=== PATIENT | male | born 2000 | race Caucasian/White ===

== ENCOUNTER 2025-02-05 23:39 | Inpatient (IN) | payer OTHER ==
[~2025-02-05] VITALS: Ht 170.2 cm; Wt 107.5 kg
[2025-02-06] VITALS (16 sets, daily range): BP systolic 134–159; BP diastolic 71–105; PULSE 58–105; RESP 12–28; TEMP 36.9–37.7; O2SAT 93–99
[2025-02-06] MEDS: LEVETIRACETAM 1000MG PREMIX 100 ML IV ONE (00:27)
[2025-02-06] MEDS: SODIUM CHLORIDE 0.9% 1,000 ML IV ONE (00:27)
[2025-02-06 01:07] LABS: DIFFERENTIAL COMMENT 1; HEMATOCRIT. 47.4 % (42.0-52.0); HEMOGLOBIN. 15.5 g/dL (14.0-18.0); MEAN CORPUSCULAR HEMOGLOBIN 27.4 pg (28.0-32.0); MEAN CORPUSCULAR HGB CONC 32.8 g/dL (31.0-37.0); MEAN CORPUSCULAR VOLUME 83.7 fL (80.0-94.0); MEAN PLATELET VOLUME 9.2 fl (7.4-10.4); PLATELET 290 x1000/uL (130-400); RED BLOOD CELL COUNT 5.67 mill/uL (4.7-6.1); RED CELL DISTRIBUTION WIDTH 13.8 % (11.6-14.6); WHITE BLOOD COUNT 33.2 x1000/uL (4.5-11.0)
[2025-02-06 01:12] LABS: CHLORIDE 104 mEq/L (98-107); SODIUM 138 mEq/L (136-145)
[2025-02-06 01:13] LABS: CALCIUM 8.7 mg/dL (8.7-10.4); CARBON DIOXIDE 22 mEq/L (21-32)
[2025-02-06 01:18] LABS: CREATININE 1.4 mg/dL (0.6-1.3); ETHANOL BLOOD < 10 mg/dL (<10); GLUCOSE 280 mg/dL (70-105); UREA NITROGEN BLOOD 10 mg/dL (9-23)
[2025-02-06] MEDS: SODIUM CHLORIDE 0.9% (SEPSIS BOLUS) IV ONE (01:38)
[2025-02-06] MEDS: PIPERACILLIN/TAZO 3.375G/50ML 50 ML IV ONE (01:42)
[2025-02-06 01:49] LABS: ALANINE AMINOTRANSFERASE 94 IU/L (10-49); ALBUMIN 4.5 g/dL (3.2-4.8); ASPARTATE AMINOTRANSFERASE 50 IU/L (<34); BILIRUBIN DIRECT < 0.1 mg/dL (<=3.0); BILIRUBIN TOTAL 0.2 mg/dL (0.1-1.0); PROTEIN TOTAL 7.2 g/dL (6.0-8.3)
[2025-02-06 01:53] LABS: LACTIC ACID 5.9 mmol/L (0.4-2.0)
[2025-02-06] MEDS: VANCOMYCIN 1G PREMIX 200 ML IV ONE (02:12)
[2025-02-06 02:37] LABS: CLARITY URINE CLEAR (CLEAR); COLOR URINE YELLOW (YELLOW); GLUCOSE URINE TRACE (NEGATIVE); KETONES URINE NEGATIVE (NEGATIVE); LEUKOCYTE ESTERASE URINE NEGATIVE (NEGATIVE); NITRITE URINE NEGATIVE (NEGATIVE); OCCULT BLOOD URINE 2+ (NEGATIVE); PROTEIN URINE 2+ (NEGATIVE); SPECIFIC GRAVITY URINE 1.017 (1.005-1.030); UROBILINOGEN URINE 0.2 E.U./dL (0.2-1.0)
[2025-02-06 02:48] LABS: *AMPHETAMINES SCREEN URINE NEGATIVE (NEGATIVE); *BARBITURATES SCREEN URINE NEGATIVE (NEGATIVE); *BENZODIAZEPINES SCREEN URINE PRESUMPTIVE POSITIVE (NEGATIVE); *COCAINE SCREEN URINE NEGATIVE (NEGATIVE); CANNABINOID URINE SCREEN NEGATIVE (NEGATIVE); METHADONE URINE SCREEN NEGATIVE (NEGATIVE); OPIATES URINE SCREEN NEGATIVE (NEGATIVE); PHENCYCLIDINE URINE SCREEN NEGATIVE (NEGATIVE)
[2025-02-06 02:49] LABS: ECSTASY MDMA SCREEN URINE NEGATIVE (NEGATIVE)
[2025-02-06 03:37] LABS: SQUAMOUS EPITHELIAL CELL URINE FEW /lpf (RARE/1+)
[2025-02-06 03:40] LABS: WBC URINE 0-2 /hpf (0-2)
[2025-02-06 03:42] LABS: BACTERIA URINE NONE SEEN; RBC URINE 0-2 /hpf (0-2)
[2025-02-06] MEDS: ONDANSETRON HCL 4MG/2ML INJ IV ONE (03:58)
[2025-02-06] MEDS: ACETAMINOPHEN 1000MG/100ML 100 ML IV ONE (03:59)
[2025-02-06] MEDS ORDERED: IOHEXOL-300 100 ML BOTTLE ONE (04:40)
[2025-02-06 05:31] LABS: PLATELET ESTIMATE NORMAL
[2025-02-06] MEDS ORDERED: ONDANSETRON HCL 4MG/2ML INJ IV PRN (11:15)
[2025-02-06] MEDS ORDERED: DEXTROSE 50% WATER 50ML SYRINGE IV PRN (11:15)
[2025-02-06] MEDS ORDERED: CEFEPIME 1GM IN DEXT 5% 50ML IV SCH (11:15)
[2025-02-06] MEDS: ONDANSETRON HCL 4MG/2ML INJ IV PRN (11:35)
[2025-02-06] MEDS: BLOOD SUGAR DIAGNOSTIC STRIP TEST SCH (12:51)
[2025-02-06] MEDS: INSULIN LISPRO 100 UNITS/ML SUBCUT SCH (12:52)
[2025-02-06] MEDS: CEFEPIME 2,000MG in DEXT 5% WATER 100ML IV SCH (14:16)
[2025-02-06] MEDS: VANCOMYCIN 1.75GM PMX (XELLIA) 350 ML IV SCH (14:19)
[2025-02-06] MEDS: ACETAMINOPHEN 325MG TABLET PO PRN (16:06)
[2025-02-06] MEDS: LEVETIRACETAM 1000MG PREMIX 100 ML IV SCH (21:00)
[2025-02-06] MEDS: VANCOMYCIN 1G PREMIX 200 ML IV SCH (23:40)
[2025-02-07] VITALS (9 sets, daily range): BP systolic 123–147; BP diastolic 81–117; PULSE 72–96; RESP 13–22; TEMP 36.7–37.1; O2SAT 95–99
[2025-02-07 07:31] LABS: POTASSIUM 3.7 mEq/L (3.5-5.1)
[2025-02-07 07:33] LABS: CALCIUM 9.1 mg/dL (8.7-10.4)
[2025-02-07 07:40] LABS: BASOPHILS % 0.4 % (0.0-2.0); EOSINOPHILS % 0.5 % (0.0-5.0); HEMATOCRIT. 42.2 % (42.0-52.0); HEMOGLOBIN. 14.4 g/dL (14.0-18.0); LYMPHOCYTES % 13.3 % (20.0-50.0); MEAN CORPUSCULAR HEMOGLOBIN 27.7 pg (28.0-32.0); MEAN CORPUSCULAR HGB CONC 34.1 g/dL (31.0-37.0); MEAN CORPUSCULAR VOLUME 81.1 fL (80.0-94.0); MEAN PLATELET VOLUME 9.1 fl (7.4-10.4); MONOCYTES % 8.4 % (2.0-8.0); NEUTROPHILS % 77.4 % (40.0-76.0); PLATELET 214 x1000/uL (130-400); RED CELL DISTRIBUTION WIDTH 13.8 % (11.6-14.6); WHITE BLOOD COUNT 14.7 x1000/uL (4.5-11.0)
[2025-02-07 07:43] LABS: CREATININE 4.2 mg/dL (0.6-1.3)
[2025-02-07] MEDS: FAMOTIDINE 20MG/2ML VIAL IV SCH (09:19)
[2025-02-07] MEDS: SODIUM CHLORIDE 0.9% 1,000 ML IV SCH (10:15)
[2025-02-07] MEDS ORDERED: CEFEPIME 2GM PREMIX 100ML IV SCH (18:00)
[2025-02-07 20:16] LABS: PHOSPHORUS 5.4 mg/dL (2.5-4.9)
[2025-02-07] MEDS: CEFEPIME 2GM PREMIX 100ML IV SCH (20:21)
[2025-02-07 20:29] LABS: CREATINE KINASE 4233 IU/L (46-171)
[2025-02-08] VITALS (7 sets, daily range): BP systolic 127–137; BP diastolic 74–86; PULSE 52–80; RESP 18–20; TEMP 36.4–37.4; O2SAT 97–100
[2025-02-08 06:56] LABS: BASOPHILS % 0.5 % (0.0-2.0); DIFFERENTIAL COMMENT 0; EOSINOPHILS % 1.1 % (0.0-5.0); HEMATOCRIT. 40.9 % (42.0-52.0); HEMOGLOBIN. 13.8 g/dL (14.0-18.0); LYMPHOCYTES % 14.7 % (20.0-50.0); MEAN CORPUSCULAR HEMOGLOBIN 26.9 pg (28.0-32.0); MEAN CORPUSCULAR HGB CONC 33.8 g/dL (31.0-37.0); MEAN CORPUSCULAR VOLUME 79.7 fL (80.0-94.0); MEAN PLATELET VOLUME 9.1 fl (7.4-10.4); NEUTROPHILS % 75.7 % (40.0-76.0); PLATELET 222 x1000/uL (130-400); RED BLOOD CELL COUNT 5.13 mill/uL (4.7-6.1); RED CELL DISTRIBUTION WIDTH 13.7 % (11.6-14.6); WHITE BLOOD COUNT 12.1 x1000/uL (4.5-11.0)
[2025-02-08 06:59] LABS: CALCIUM 9.5 mg/dL (8.7-10.4)
[2025-02-08 07:03] LABS: CREATININE 4.9 mg/dL (0.6-1.3)
[2025-02-08] MEDS: SODIUM CHLORIDE 0.9% 1,000 ML IV SCH (11:02)
[2025-02-08] MEDS: SODIUM BICARBONATE 650MG TABLET PO SCH (11:13)
[2025-02-08 12:21] LABS: PHOSPHORUS 5.1 mg/dL (2.5-4.9)
[2025-02-08] MEDS: CEFEPIME 2GM PREMIX 100ML IV SCH (21:34)
[2025-02-08 23:37] LABS: CREATININE URINE RANDOM 84.2 mg/dL
[2025-02-09] VITALS: BP 133/76; PULSE 80; RESP 18; TEMP 36.7; O2SAT 95
[2025-02-09 04:00] VITALS: BP 131/76; PULSE 56; RESP 18; TEMP 36.8; O2SAT 96
[2025-02-09 07:53] LABS: BASOPHILS % 0.7 % (0.0-2.0); EOSINOPHILS % 1.6 % (0.0-5.0); HEMATOCRIT. 38.3 % (42.0-52.0); HEMOGLOBIN. 12.9 g/dL (14.0-18.0); LYMPHOCYTES % 18.7 % (20.0-50.0); MEAN CORPUSCULAR HEMOGLOBIN 27.1 pg (28.0-32.0); MEAN CORPUSCULAR HGB CONC 33.6 g/dL (31.0-37.0); MEAN CORPUSCULAR VOLUME 80.6 fL (80.0-94.0); MEAN PLATELET VOLUME 9.5 fl (7.4-10.4); MONOCYTES % 8.8 % (2.0-8.0); NEUTROPHILS % 70.2 % (40.0-76.0); PLATELET 205 x1000/uL (130-400); RED BLOOD CELL COUNT 4.75 mill/uL (4.7-6.1); RED CELL DISTRIBUTION WIDTH 13.6 % (11.6-14.6); WHITE BLOOD COUNT 10.3 x1000/uL (4.5-11.0)
[2025-02-09 08:00] VITALS: BP 141/85; PULSE 46; RESP 20; TEMP 36.3; O2SAT 100
[2025-02-09 08:16] LABS: POTASSIUM 3.9 mEq/L (3.5-5.1)
[2025-02-09 08:18] LABS: CALCIUM 9.3 mg/dL (8.7-10.4)
[2025-02-09 08:22] LABS: CREATININE 4.1 mg/dL (0.6-1.3)
[2025-02-09 12:00] VITALS: BP 151/70; PULSE 47; RESP 19; TEMP 36.2; O2SAT 100
[2025-02-09] MEDS ORDERED: LEVE1000 MT (12:39)
[2025-02-09 16:00] VITALS: BP 144/80; PULSE 46; RESP 19; TEMP 36.2; O2SAT 100
[2025-02-09 20:00] VITALS: BP 130/62; PULSE 50; RESP 18; TEMP 36.7; O2SAT 98
[2025-02-10] VITALS: BP 131/54; PULSE 71; RESP 18; TEMP 37.1; O2SAT 100
[2025-02-10 04:00] VITALS: BP 119/54; PULSE 59; RESP 18; TEMP 36.5; O2SAT 98
[2025-02-10 06:17] LABS: BASOPHILS % 0.6 % (0.0-2.0); EOSINOPHILS % 3.1 % (0.0-5.0); HEMATOCRIT. 39.4 % (42.0-52.0); LYMPHOCYTES % 23.1 % (20.0-50.0); MEAN CORPUSCULAR HEMOGLOBIN 27.1 pg (28.0-32.0); MEAN CORPUSCULAR VOLUME 82.2 fL (80.0-94.0); MEAN PLATELET VOLUME 9.6 fl (7.4-10.4); MONOCYTES % 9.6 % (2.0-8.0); NEUTROPHILS % 63.6 % (40.0-76.0); PLATELET 214 x1000/uL (130-400); RED CELL DISTRIBUTION WIDTH 13.9 % (11.6-14.6)
[2025-02-10 06:24] LABS: CALCIUM 9.1 mg/dL (8.7-10.4)
[2025-02-10 06:29] LABS: CREATININE 3.2 mg/dL (0.6-1.3)
[2025-02-10 08:00] VITALS: BP 127/46; PULSE 56; RESP 19; TEMP 36.4; O2SAT 97
[2025-02-10] MEDS: SODIUM BICARBONATE 100 MEQ in DEXTROSE 5% WATER 900 ML IV SCH (11:32)
[2025-02-10 12:00] VITALS: BP 150/87; PULSE 57; RESP 18; TEMP 36.3; O2SAT 96
[2025-02-10] MEDS: LACOSAMIDE 100MG TABLET PO SCH (12:33)
[2025-02-10 16:00] VITALS: BP 127/71; PULSE 47; RESP 19; TEMP 36.6; O2SAT 97
[2025-02-10 20:00] VITALS: BP 147/54; PULSE 54; RESP 19; TEMP 37; O2SAT 54
[2025-02-11] VITALS: BP 139/73; PULSE 66; RESP 18; TEMP 36.7; O2SAT 97
[2025-02-11 04:00] VITALS: BP 134/71; PULSE 66; RESP 19; TEMP 36.5; O2SAT 98
[2025-02-11 08:00] VITALS: BP 158/86; PULSE 70; RESP 19; TEMP 36.3; O2SAT 98
[2025-02-11 12:00] VITALS: BP 137/84; PULSE 54; RESP 18; TEMP 36.3; O2SAT 98
[2025-02-11 12:12] LABS: POTASSIUM 4.2 mEq/L (3.5-5.1)
[2025-02-11 12:13] LABS: CALCIUM 8.9 mg/dL (8.7-10.4)
[2025-02-11 12:18] LABS: CREATININE 2.6 mg/dL (0.6-1.3)
[2025-02-11 13:06] LABS: BASOPHILS % 0.4 % (0.0-2.0); EOSINOPHILS % 3.4 % (0.0-5.0); HEMATOCRIT. 39.1 % (42.0-52.0); HEMOGLOBIN. 13.1 g/dL (14.0-18.0); LYMPHOCYTES % 15.5 % (20.0-50.0); MEAN CORPUSCULAR HGB CONC 33.5 g/dL (31.0-37.0); MEAN CORPUSCULAR VOLUME 80.6 fL (80.0-94.0); MONOCYTES % 10.7 % (2.0-8.0); PLATELET 237 x1000/uL (130-400); RED BLOOD CELL COUNT 4.84 mill/uL (4.7-6.1); RED CELL DISTRIBUTION WIDTH 13.7 % (11.6-14.6); WHITE BLOOD COUNT 13.5 x1000/uL (4.5-11.0)
[2025-02-11 16:00] VITALS: BP 135/78; PULSE 55; RESP 18; TEMP 36.4; O2SAT 98
[2025-02-11 20:00] VITALS: BP 136/71; PULSE 61; RESP 17; TEMP 36.9; O2SAT 98
[2025-02-12] VITALS: BP 137/77; PULSE 68; RESP 17; TEMP 36.6; O2SAT 98
[2025-02-12 04:00] VITALS: BP 128/63; PULSE 54; RESP 17; TEMP 36.9; O2SAT 96
[2025-02-12 08:00] VITALS: BP 135/74; PULSE 50; RESP 18; TEMP 36.6; O2SAT 97
[2025-02-12 08:21] LABS: DIFFERENTIAL COMMENT 0; EOSINOPHILS % 6.2 % (0.0-5.0); HEMOGLOBIN. 13.7 g/dL (14.0-18.0); LYMPHOCYTES % 18.7 % (20.0-50.0); MEAN CORPUSCULAR HEMOGLOBIN 27.4 pg (28.0-32.0); MEAN CORPUSCULAR HGB CONC 34.3 g/dL (31.0-37.0); MEAN CORPUSCULAR VOLUME 79.9 fL (80.0-94.0); MEAN PLATELET VOLUME 9.6 fl (7.4-10.4); NEUTROPHILS % 66.1 % (40.0-76.0); PLATELET 241 x1000/uL (130-400); RED BLOOD CELL COUNT 5.01 mill/uL (4.7-6.1); RED CELL DISTRIBUTION WIDTH 13.7 % (11.6-14.6); WHITE BLOOD COUNT 10.1 x1000/uL (4.5-11.0)
[2025-02-12] MEDS ORDERED: LACO100T2 MT (08:38)
[2025-02-12 08:46] LABS: POTASSIUM 3.8 mEq/L (3.5-5.1)
[2025-02-12 08:48] LABS: CALCIUM 9.4 mg/dL (8.7-10.4)
[2025-02-12 08:52] LABS: CREATININE 2.4 mg/dL (0.6-1.3)
[2025-02-12] MEDS ORDERED: SULF1TAB48 MT (09:29)
[2025-02-12 12:00] VITALS: BP 140/75; PULSE 49; RESP 18; TEMP 36.5; O2SAT 95
[2025-02-12 12:47] VITALS: BP 134/77; PULSE 60; TEMP 97.1; O2SAT 99
== END 2025-02-12 13:36 | disposition home or self-care (01) | DRG 720 ==
LOC: ER 23:39 → EDBEDREQSVC 02-06 03:48 → EDBEDREQ 02-06 03:48 → EDBEDREQTM 02-06 03:48 → ENRESERV 02-06 05:28 → 5EST 02-06 06:37 → 7EST 02-07 14:20
PROVIDERS: ADMIT Internal Medicine; ATTEND Internal Medicine
DX: A41.9 Sepsis, unspecified organism (principal); J96.01 Acute respiratory failure with hypoxia; J69.0 Pneumonitis due to inhalation of food and vomit; E87.20 Acidosis, unspecified; G40.911 Epilepsy, unspecified, intractable, with status epilepticus; E83.39 Other disorders of phosphorus metabolism; M62.82 Rhabdomyolysis; Z20.822 Contact with and (suspected) exposure to COVID-19; N17.9 Acute kidney failure, unspecified; N12 Tubulo-interstitial nephritis, not specified as acute or chronic; K76.0 Fatty (change of) liver, not elsewhere classified; R73.9 Hyperglycemia, unspecified; F79 Unspecified intellectual disabilities; J98.11 Atelectasis; R65.20 Severe sepsis without septic shock
CPT/HCPCS: 36415; 70551; 71045; 74177; 76770; 80048; 80076; 80202; 80305; 80320; 80339; 81003; 82550; 82570; 82962; 83036; 83605; 83735; 83930; 84100; 84145; 84300; 85025; 85651; 86038; 87426; 93005; 95816; 99291; A4606; J0692; J1308; J1953; J2405; J2543; J3370; J3490; J7030; J7060; J7070; Q9967; G0480; J0131